=== PATIENT | female | born 2000 | race Two or more races ===

== ENCOUNTER 2018-07-05 00:10 | Emergency (ER) | payer MEDICAID ==
[~2018-07-05] VITALS: Ht 157.5 cm; Wt 88.0 kg
[2018-07-05 00:35] VITALS: BP 121/67
[2018-07-05] MEDS ORDERED: Norco 5mg/325mg tab PO ONE (00:45)
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
--- NOTE | 2018-07-05 02:28 | Diagnostic Imaging Report ---
EXAM: XR Right Ankle Complete, 3 or More Views CLINICAL HISTORY: PAIN TECHNIQUE: Frontal, lateral and oblique views of the right ankle. COMPARISON: No relevant prior studies available. FINDINGS: Bones/joints: 5 x 9 mm os trigonum is incidentally noted. No acute fracture. No dislocation. Soft tissues: Unremarkable. IMPRESSION: No acute findings.
--- NOTE | 2018-07-05 02:29 | Diagnostic Imaging Report ---
EXAM: XR Right Foot Complete, 3 or More Views CLINICAL HISTORY: PAIN TECHNIQUE: Frontal, lateral and oblique views of the right foot. COMPARISON: No relevant prior studies available. FINDINGS: Bones/joints: 5 x 9 mm os trigonum is incidentally noted. No acute fracture. No dislocation. Soft tissues: Unremarkable. No radiopaque foreign body. IMPRESSION: No acute findings.
--- NOTE | 2018-07-05 02:30 | Diagnostic Imaging Report ---
EXAM: XR Right Femur, 2 Views CLINICAL HISTORY: PAIN TECHNIQUE: Frontal and lateral views of the right femur. COMPARISON: No relevant prior studies available. FINDINGS: Bones/joints: Unremarkable. No acute fracture. No dislocation. Soft tissues: Unremarkable. IMPRESSION: Normal right femur x-rays.
--- NOTE | 2018-07-05 02:30 | Diagnostic Imaging Report ---
EXAM: XR Right Hip With Pelvis When Performed, 2 Views CLINICAL HISTORY: PAIN TECHNIQUE: Frontal and oblique views of right hip COMPARISON: No relevant prior studies available. FINDINGS: Bones/joints: Unremarkable. No acute fracture. No dislocation. Soft tissues: Unremarkable. IMPRESSION: No acute findings
--- NOTE | 2018-07-05 02:31 | Diagnostic Imaging Report ---
EXAM: XR Right Tibia and Fibula, 2 Views CLINICAL HISTORY: PAIN TECHNIQUE: Frontal and lateral views of the right tibia and fibula. COMPARISON: No relevant prior studies available. FINDINGS: Bones/joints: Unremarkable. No acute fracture. No dislocation. Soft tissues: Unremarkable. No radiopaque foreign body. IMPRESSION: No fracture
[2018-07-05] MEDS ORDERED: IBUPROFEN600 MG ORAL (02:39)
[2018-07-05] MEDS ORDERED: ACETAMINOPHEN-1 EAC1 ORAL (02:39)
[2018-07-05 02:46] VITALS: BP 121/67
== END 2018-07-05 02:45 | disposition home or self-care (01) ==
LOC: EMR 00:44
DX: S80.11XA Contusion of right lower leg, initial encounter (principal); V43.62XA Car passenger injured in collision with other type car in traffic accident, initial encounter; Y92.410 Unspecified street and highway as the place of occurrence of the external cause
CPT/HCPCS: 81025; 99284